=== PATIENT | female | born 1985 | race Caucasian/White ===

== ENCOUNTER → 2016-12-18 | Outpatient (CLI) | payer OTHER ==
--- NOTE | 2016-12-19 14:51 | EEG PRO FEE REPORT ---
EEG INTERPRETATION PATIENT NAME: DEVIN WILKERSON ROOM#: ORDER#: [id number] DATE OF STUDY: 12/18/2016 : 1985 REFERRING MD: ZECHARIAH DIAMOND M.D. DIAGNOSIS: This is a 31-year-old female felt to have had seizures and recently stopped off medications. REPORT The background activity while awake is 7 to 8 Hz mixed theta and alpha, and slows down some as the patient gets drowsy. There is moderate build-up during hyperventilation with the record returning to normal or baseline after 1.5 minutes. No clear focal slowing, amplitude asymmetry, or epileptiform or other paroxysmal discharges are seen other than motion artifact. As the patient becomes drowsy, drowsy bursts are noted also. IMPRESSION Normal EEG INTERPRETING PHYSICIAN: ANNIKA MORRIS M.D. /: [place] TT: 1407 ID: [id number] /: [id number] TD: 1221 JOB: [id number] cc:Jaren LORD M.D. >
== END ==
LOC: NEURO 12:36
PROVIDERS: ATTEND Pediatrics
DX: R56.9 Unspecified convulsions (principal); R55 Syncope and collapse
CPT/HCPCS: 95819